=== PATIENT | female | born 1990 | race American Indian/Alaskan Native ===

== ENCOUNTER 2020-11-04 08:59 | Emergency (ER) | payer OTHER ==
[2020-11-04 09:39] VITALS: BP 120/62
== END 2020-11-04 11:11 | disposition left against medical advice (07) ==
LOC: EDSEX → ED 08:59
DX: G43.909 Migraine, unspecified, not intractable, without status migrainosus (principal); Z53.21 Procedure and treatment not carried out due to patient leaving prior to being seen by health care provider

== ENCOUNTER 2020-11-06 22:12 | Emergency (ER) | payer OTHER ==
[2020-11-07] MEDS ORDERED: METOCLOPRAMIDE 10 MG/2 ML INJ IM ONE (00:17)
[2020-11-07] MEDS ORDERED: MORPHINE 4 MG/1 ML INJ IM ONE (00:17)
--- NOTE | 2020-11-07 00:21 | Emergency Department Report ---
ED Headache HPI - General Chief Complaint: Headache Stated Complaint: SEVERE MIGRAINES Time Seen by Provider: 11/07/20 00:13 Source: patient Exam Limitations: no limitations - History of Present Illness Initial Comments: Patient is 30 years old transgender with no significant past medical history. Patient stated that she has been having a headache for approximately 1 week now. Patient describes her headache as throbbing mainly frontal and sometimes down to behind her eyes. Patient denied any recent injury. No neck stiffness. No fever. Patient also denied any weakness numbness or tingling sensation. No bowel or bladder incontinence. Timing/Duration: 1 week Quality: throbbing Head Injury Location: frontal Recent Head Trauma: no recent headache/trauma, occasional headaches Modifying Factors: improves with: medication (tylenol) Associated Symptoms: denies: denies symptoms, confusion, fatigue, facial pain, fever/chills, flushing, loss of consciousness, nausea/vomiting, nasal congestion, nasal drainage, numbness in legs/feet, rash, seizures, sinus infection, stiff neck, vision changes, weakness, other Allergies/Adverse Reactions: Allergies No Known Allergies Allergy (Unverified 11/06/20 22:51) ED Review of Systems ROS: Stated complaint: SEVERE MIGRAINES Other details as noted in HPI Comment: All other systems reviewed and negative Constitutional: denies: chills, fever Respiratory: denies: cough, shortness of breath, SOB with exertion Cardiovascular: denies: chest pain, palpitations Gastrointestinal: denies: abdominal pain, nausea, vomiting Musculoskeletal: denies: back pain Neurological: headache. denies: weakness, numbness, paresthesias, confusion, abnormal gait ED Past Medical Hx - Surgical History Additional Surgical History: gastric bypass. tuan tumaira - Social History Smoking Status: Never Smoker ED Physical Exam - General Limitations: No Limitations General appearance: alert, in no apparent distress - Head Head exam: Present: atraumatic, normocephalic, normal inspection - Eye Eye exam: Present: normal appearance, PERRL - ENT ENT exam: Present: normal exam, normal orophraynx, mucous membranes moist - Neck Neck exam: Present: normal inspection, full ROM. Absent: tenderness, meningismus - Respiratory Respiratory exam: Present: normal lung sounds bilaterally - Cardiovascular Cardiovascular Exam: Present: regular rate, normal rhythm, normal heart sounds - GI/Abdominal GI/Abdominal exam: Present: soft, normal bowel sounds. Absent: distended, tenderness, guarding, rebound, rigid, organomegaly, mass, bruit, pulsatile mass, hernia - Extremities Exam Extremities exam: Present: normal inspection, full ROM, normal capillary refill. Absent: pedal edema, calf tenderness - Back Exam Back exam: Present: normal inspection, full ROM. Absent: CVA tenderness (R), CVA tenderness (L) - Neurological Exam Neurological exam: Present: alert, oriented X3, CN II-XII intact, normal gait, reflexes normal. Absent: motor sensory deficit - Psychiatric Psychiatric exam: Present: normal mood - Skin Skin exam: Present: warm, intact, normal color ED Course Vital Signs 11/06/20 11/07/20 22:51 00:29 Temperature 98.7 F Pulse Rate 87 Respiratory 16 18 Rate Blood Pressure 142/75 O2 Sat by Pulse 95 Oximetry ED Medical Decision Making - Radiology Data Radiology results: report reviewed - Medical Decision Making Patient is 30 years old transgender with no significant past medical history. Patient stated that she has been having a headache for approximately 1 week now. Patient describes her headache as throbbing mainly frontal and sometimes down to behind her eyes. Patient denied any recent injury. No neck stiffness. No fever. Patient also denied any weakness numbness or tingling sensation. No bowel or bladder incontinence. Patient received morphine and Reglan. She stated that she is feeling much better CT brain is negative for acute finding. Patient given prescription for tramadol and Reglan and advised to follow-up with her primary doctor in the next 2 to 3 days and to return to the ER if she develop any new symptoms. Critical care attestation.: If time is entered above; I have spent that time in minutes in the direct care of this critically ill patient, excluding procedure time. ED Disposition Clinical Impression: Acute headache Disposition: DC-01 TO HOME OR SELFCARE Is pt being admited?: No Condition: Stable Instructions: Migraine Headache Referrals: [facility] [Provider Group] - 3-5 Days
--- NOTE | 2020-11-07 02:28 | Cat Scan Report ---
CT HEAD WITHOUT CONTRAST INDICATION : New onset headache. TECHNIQUE: Axial, coronal and sagittal CT imaging was performed from the skull apex through the skul l base without contrast. All CT scans at this location are performed using CT dose reduction for ALA RA by means of automated exposure control. COMPARISON: None available. FINDINGS: PARENCHYMA: No mass, midline shift, hemorrhage, extraaxial collection or acute territorial infarctio n. VENTRICLES: Symmetric and normal in size. SOFT TISSUES: No significant abnormality of the included soft tissues/orbits. BONES: No acute osseous abnormality. SINUSES: No significant abnormality. ADDITIONAL FINDINGS: None. IMPRESSION: 1. No acute intracranial abnormality. Signer Name: Nico Villegas MD Signed: 11/07/2020 2:24 AM Workstation Name: [id number][id number]
[2020-11-07] MEDS ORDERED: KETOROLAC 60 MG/2 ML INJ IM ONE (03:10)
[2020-11-07 04:21] VITALS: BP 109/66
== END 2020-11-07 04:20 | disposition home or self-care (01) ==
LOC: EDSEX → ED 22:12
DX: R51.9 Headache, unspecified (principal); Z79.899 Other long term (current) drug therapy
CPT/HCPCS: 70450; 96372; 99283; J1885; J2270; J2765